=== PATIENT | female | born 1970 | race Hispanic/Latino ===

== ENCOUNTER 2018-07-11 23:44 | Inpatient (IN) | payer OTHER ==
[~2018-07-11] VITALS: Ht 144.8 cm; Wt 65.0 kg
[~2018-07-11 23:44] MED LIST: CIPR-245 PO
[2018-07-12] VITALS (22 sets, daily range): BP systolic 98–145; BP diastolic 64–86
[2018-07-12 00:06] LABS: APPEARANCE,URINE CLOUDY (CLEAR); BILIRUBIN,URINE Negative (NEGATIVE); COLOR,URINE Orange (YELLOW); GLUCOSE, URINE (UA) Negative (NEGATIVE); KETONES,URINE 40 mg/dL (NEGATIVE); LEUKOCYTE ESTERASE ,URINE Large (NEGATIVE); NITRATE,URINE Positive (NEGATIVE); OCCULT BLOOD,URINE Large (NEGATIVE); PH,URINE 6.5 (5.0-8.0); PROTEIN,URINE 300 (NEGATIVE)
[2018-07-12 00:14] LABS: BACTERIA,URINE Moderate /HPF (None Seen); MUCUS,URINE Few LPF (None Seen); RBC,URINE 51-100 /HPF (0-1); SQUAMOUS EPITHELIAL CELL,UR Rare /HPF (0-2); WBC,URINE 26-50 /HPF (0-1)
[2018-07-12] MEDS ORDERED: ONDANSETRON HCL 4 MG/2 ML VIAL ONE (00:20)
[2018-07-12] MEDS ORDERED: MORPHINE SULFATE 4 MG/1ML SYG ONE (00:20)
[2018-07-12] MEDS ORDERED: SODIUM CHLORIDE 0.9% 1000ML 1,000 ML IV ONE (00:20)
[2018-07-12 00:49] LABS: BASOPHILS % (AUTO) 0.2 % (0.0-5.0); EOSINOPHILS % (AUTO) 0.1 % (0.0-8.0); HEMATOCRIT 39.3 % (36-48); LYMPHOCYTES % (AUTO) 4.4 % (21.0-51.0); MEAN CORPUSCULAR HEMOGLOBIN 27.7 pg (27.0-33.0); MEAN CORPUSCULAR HGB CONC 33.9 g/dL (32.0-36.0); MEAN CORPUSCULAR VOLUME 81.9 fL (79-99); MONOCYTES % (AUTO) 2.2 % (3.0-13.0); NEUTROPHILS % (AUTO) 93.1 % (40.0-77.0); PLATELET COUNT (AUTO) 380 K/uL (130-400); RED CELL DISTRIBUTION WIDTH 13.9 % (11.0-15.5); WHITE BLOOD COUNT (AUTO) 13.6 K/uL (4.8-10.8)
[2018-07-12] MEDS ORDERED: CEFTRIAXONE SODIUM 1 GM ONE (01:04)
[2018-07-12 01:07] LABS: ALBUMIN 3.8 g/dL (3.5-5.0); BILIRUBIN,TOTAL 0.4 mg/dL (0.2-1.0); POTASSIUM 4.2 mmol/L (3.5-5.1); TOTAL PROTEIN, SERUM 9.2 g/dL (6.0-8.3)
[2018-07-12] MEDS ORDERED: LIDOCAINE HCL 2% VISCOUS 15 ML UDCUP ONE (02:02)
[2018-07-12] MEDS ORDERED: SODIUM CHLORIDE 0.9% 1000ML 1,000 ML IV SCH ×2 (03:00→05:27)
[2018-07-12] MEDS ORDERED: ONDANSETRON HCL MDV 20ML 2 MG/ML VIAL IVP PRN (05:30)
[2018-07-12] MEDS ORDERED: LEVOFLOXACIN 500 MG/D5W 100 ML 100 ML IV SCH (06:00)
[2018-07-12] MEDS ORDERED: ONDANSETRON HCL 4 MG/2 ML VIAL IVP PRN (07:31)
[2018-07-12] MEDS ORDERED: LACTATED RINGERS 1000ML 1,000 ML IV ONE (08:57)
[2018-07-12] MEDS: FAMOTIDINE/PF 20 MG/2 ML VIAL IV SCH (09:00)
[2018-07-12] MEDS ORDERED: LIDOCAINE PF 2% 5ML ABBOJECT ONE ×2 (09:11→09:14)
[2018-07-12] MEDS ORDERED: DEXAMETHASONE SOD PHOSPHATE 10MG/ML 1ML VIAL ONE (09:11)
[2018-07-12] MEDS ORDERED: CEFOXITIN SODIUM 1 GM VIAL ONE (09:11)
[2018-07-12] MEDS ORDERED: NEOSTIGMINE 5MG/5ML SYR IV ONE (09:12)
[2018-07-12] MEDS ORDERED: MIDAZOLAM HCL 1 MG/ML 2ML VIAL ONE (09:12)
[2018-07-12] MEDS ORDERED: GLYCOPYRROLATE 1 MG/5 ML SYRINGE ONE (09:12)
[2018-07-12] MEDS ORDERED: PROPOFOL 10 MG/ML 20ML VIAL IV ONE (09:12)
[2018-07-12] MEDS ORDERED: FENTANYL CITRATE PF 50 MCG/1 ML 2ML VIAL ONE ×2 (09:12→09:55)
[2018-07-12] MEDS ORDERED: ROCURONIUM 10MG/1ML SYR 10 MG/ML ML ONE ×2 (09:12→09:14)
[2018-07-12] MEDS ORDERED: MORPHINE SULFATE 4 MG/1ML SYG IV PRN (11:00)
[2018-07-12] MEDS ORDERED: KETOROLAC TROMETHAMINE 30MG/ML IM PRN (11:00)
[2018-07-12] MEDS ORDERED: MEPERIDINE-PF 25 MG/ML SYG ONE ×2 (11:11→11:23)
[2018-07-12] MEDS ORDERED: MORPHINE SULFATE 2 MG/ML 1ML SYG ONE (11:39)
[2018-07-12] MEDS: LACTATED RINGERS 1000ML 1,000 ML IV SCH (12:44)
[2018-07-13] VITALS (17 sets, daily range): BP systolic 97–138; BP diastolic 41–81
[2018-07-13] MEDS: LACTATED RINGERS 1000ML 1,000 ML IV SCH ×2 (00:10→13:30)
[2018-07-13 04:45] LABS: BASOPHILS % (AUTO) 0.2 % (0.0-5.0); EOSINOPHILS % (AUTO) 0.8 % (0.0-8.0); HEMATOCRIT 35.2 % (36-48); LYMPHOCYTES % (AUTO) 14.2 % (21.0-51.0); MEAN CORPUSCULAR HEMOGLOBIN 28.5 pg (27.0-33.0); MEAN CORPUSCULAR HGB CONC 34.3 g/dL (32.0-36.0); MEAN CORPUSCULAR VOLUME 82.9 fL (79-99); MONOCYTES % (AUTO) 8.3 % (3.0-13.0); NEUTROPHILS % (AUTO) 76.5 % (40.0-77.0); PLATELET COUNT (AUTO) 278 K/uL (130-400); RED BLOOD CELL COUNT(AUTO) 4.25 MIL/uL (4.00-5.50); RED CELL DISTRIBUTION WIDTH 13.7 % (11.0-15.5); WHITE BLOOD COUNT (AUTO) 8.4 K/uL (4.8-10.8)
[2018-07-13 05:12] LABS: ALBUMIN 2.9 g/dL (3.5-5.0); BILIRUBIN,TOTAL 0.4 mg/dL (0.2-1.0); CREATININE 0.9 mg/dL (0.5-1.5); POTASSIUM 3.7 mmol/L (3.5-5.1); TOTAL PROTEIN, SERUM 7.2 g/dL (6.0-8.3)
[2018-07-13] MEDS: FAMOTIDINE/PF 20 MG/2 ML VIAL IV SCH (08:40)
[2018-07-13] MEDS ORDERED: LIDOCAINE HCL 1% MDV 50ML VIAL ONE (09:48)
[2018-07-13] MEDS ORDERED: IODIXANOL 320 MG/ML 100 ML VIAL ONE (09:48)
[2018-07-13] MEDS: ZOSYN 3.375GM+NS 50ML 50 ML IV SCH (19:02)
[2018-07-14] MEDS: ZOSYN 3.375GM+NS 50ML 50 ML IV SCH ×4 (00:15→23:22)
[2018-07-14 03:50] VITALS: BP 122/69
[2018-07-14 05:18] LABS: HEMATOCRIT 36.2 % (36-48); MEAN CORPUSCULAR HEMOGLOBIN 28.3 pg (27.0-33.0); MEAN CORPUSCULAR HGB CONC 33.6 g/dL (32.0-36.0); MEAN CORPUSCULAR VOLUME 84.1 fL (79-99); PLATELET COUNT (AUTO) 397 K/uL (130-400); WHITE BLOOD COUNT (AUTO) 9.5 K/uL (4.8-10.8)
[2018-07-14 05:44] LABS: CREATININE 0.9 mg/dL (0.5-1.5); POTASSIUM 3.4 mmol/L (3.5-5.1)
[2018-07-14 07:54] VITALS: BP 115/63
[2018-07-14] MEDS: FAMOTIDINE/PF 20 MG/2 ML VIAL IV SCH (08:46)
[2018-07-14 10:57] VITALS: BP 120/71
[2018-07-14] MEDS ORDERED: KETOROLAC TROMETHAMINE 30MG/ML IV PRN (15:15)
[2018-07-14 15:48] VITALS: BP 128/72
[2018-07-14 20:00] VITALS: BP 136/85
[2018-07-14] MEDS: LACTATED RINGERS 1000ML 1,000 ML IV SCH (23:22)
[2018-07-15] VITALS (7 sets, daily range): BP systolic 102–137; BP diastolic 67–88
[2018-07-15 04:51] LABS: BASOPHILS % (AUTO) 0.7 % (0.0-5.0); EOSINOPHILS % (AUTO) 5.3 % (0.0-8.0); LYMPHOCYTES % (AUTO) 20.1 % (21.0-51.0); MEAN CORPUSCULAR HEMOGLOBIN 27.8 pg (27.0-33.0); MEAN CORPUSCULAR HGB CONC 33.9 g/dL (32.0-36.0); MONOCYTES % (AUTO) 7.8 % (3.0-13.0); NEUTROPHILS % (AUTO) 66.1 % (40.0-77.0); NUCLEATED RED BLOOD CELLS 0.1 % (0.0-0.19); PLATELET COUNT (AUTO) 281 K/uL (130-400); RED BLOOD CELL COUNT(AUTO) 3.78 MIL/uL (4.00-5.50); RED CELL DISTRIBUTION WIDTH 13.8 % (11.0-15.5); WHITE BLOOD COUNT (AUTO) 6.6 K/uL (4.8-10.8)
[2018-07-15 04:58] LABS: CREATININE 0.9 mg/dL (0.5-1.5); POTASSIUM 3.7 mmol/L (3.5-5.1)
[2018-07-15] MEDS: FAMOTIDINE/PF 20 MG/2 ML VIAL IV SCH (09:30)
[2018-07-15] MEDS: ZOSYN 3.375GM+NS 50ML 50 ML IV SCH ×3 (09:30→23:44)
[2018-07-15] MEDS: LACTATED RINGERS 1000ML 1,000 ML IV SCH ×2 (16:40→23:24)
[2018-07-16 04:00] VITALS: BP 122/64
[2018-07-16 05:32] LABS: BASOPHILS % (AUTO) 1.2 % (0.0-5.0); EOSINOPHILS % (AUTO) 4.6 % (0.0-8.0); HEMATOCRIT 30.5 % (36-48); LYMPHOCYTES % (AUTO) 22.4 % (21.0-51.0); MEAN CORPUSCULAR HEMOGLOBIN 28.6 pg (27.0-33.0); MEAN CORPUSCULAR HGB CONC 34.3 g/dL (32.0-36.0); MEAN CORPUSCULAR VOLUME 83.2 fL (79-99); MONOCYTES % (AUTO) 8.2 % (3.0-13.0); NEUTROPHILS % (AUTO) 63.6 % (40.0-77.0); PLATELET COUNT (AUTO) 345 K/uL (130-400); RED BLOOD CELL COUNT(AUTO) 3.66 MIL/uL (4.00-5.50); RED CELL DISTRIBUTION WIDTH 13.6 % (11.0-15.5); WHITE BLOOD COUNT (AUTO) 6.5 K/uL (4.8-10.8)
[2018-07-16 05:42] LABS: CREATININE 0.8 mg/dL (0.5-1.5); POTASSIUM 3.7 mmol/L (3.5-5.1)
[2018-07-16 07:41] VITALS: BP 128/87
[2018-07-16] MEDS: ZOSYN 3.375GM+NS 50ML 50 ML IV SCH ×2 (08:35→19:28)
[2018-07-16] MEDS: FAMOTIDINE/PF 20 MG/2 ML VIAL IV SCH (08:35)
[2018-07-16 11:58] VITALS: BP 129/81
[2018-07-16 15:27] VITALS: BP 134/84
[2018-07-16] MEDS: LACTATED RINGERS 1000ML 1,000 ML IV SCH ×2 (19:35→21:30)
[2018-07-16 19:57] VITALS: BP 125/76
[2018-07-16 23:50] VITALS: BP 131/77
[2018-07-17] MEDS: ZOSYN 3.375GM+NS 50ML 50 ML IV SCH ×3 (00:15→16:54)
[2018-07-17 04:00] VITALS: BP 128/54
[2018-07-17 07:30] VITALS: BP 121/73
[2018-07-17] MEDS: FAMOTIDINE/PF 20 MG/2 ML VIAL IV SCH (09:05)
[2018-07-17 11:00] VITALS: BP 126/83
[2018-07-17 15:30] VITALS: BP 135/70
[2018-07-17 20:00] VITALS: BP 123/76
== END 2018-07-17 20:30 | disposition home or self-care (01) | DRG 354 ==
LOC: EDH 23:44 → EDHIP 23:45 → 3DH 07-12 03:12
PROVIDERS: ADMIT Internal Medicine; ATTEND Internal Medicine
PROC: 0WQF0ZZ Repair Abdominal Wall, Open Approach (ICD-10-PCS; principal; 2018-07-14)
DX: K43.3 Parastomal hernia with obstruction, without gangrene (principal); N13.6 Pyonephrosis; D64.9 Anemia, unspecified; E66.9 Obesity, unspecified; K66.0 Peritoneal adhesions (postprocedural) (postinfection); K76.0 Fatty (change of) liver, not elsewhere classified; N99.522 Malfunction of incontinent external stoma of urinary tract; B96.4 Proteus (mirabilis) (morganii) as the cause of diseases classified elsewhere; Z68.31 Body mass index [BMI] 31.0-31.9, adult; Z90.49 Acquired absence of other specified parts of digestive tract; Z91.14 Patient's other noncompliance with medication regimen; Z85.038 Personal history of other malignant neoplasm of large intestine; Z92.21 Personal history of antineoplastic chemotherapy; Z91.19 Patient's noncompliance with other medical treatment and regimen
CPT/HCPCS: 36415; 50431; 74176; 76700; 78700; 80048; 80053; 81001; 82150; 83605; 83690; 84703; 85025; 85027; 87040; 87070; 87076; 87077; 87088; 87186; 88302; 93005; A4218; A9562; C9113; J0694; J0696; J1100; J1644; J1885; J1956; J2001; J2175; J2250; J2270; J2405; J2543; J2704; J2710; J3010; J3490; J7030; J7120; Q9967